=== PATIENT | male | born 1960 | race Caucasian/White ===

== ENCOUNTER 2017-03-01 09:53 | Emergency (ER) | payer MEDICARE, OTHER ==
[2017-03-01] MEDS ORDERED: HUMALOG100 UNIT/2 (10:03)
[2017-03-01] MEDS ORDERED: LANTUS100 U/ML SUBQ (10:04)
[2017-03-01] MEDS ORDERED: ZESTRIL5 MG PO (10:07)
[2017-03-01] MEDS ORDERED: LYRICA (10:07)
[2017-03-01] MEDS ORDERED: KLOR-CON PO (10:07)
[2017-03-01] MEDS ORDERED: FUROSEMIDE40 MG PO (10:07)
[2017-03-01] MEDS ORDERED: AMARYL (10:08)
[2017-03-01] MEDS ORDERED: LIPITOR20 MG PO (10:08)
[2017-03-01] MEDS ORDERED: RANEXA500 MG PO (10:08)
[2017-03-01] MEDS ORDERED: CARVEDILOL6.25 MG PO (10:08)
[2017-03-01] MEDS ORDERED: COUMADIN10 MG (10:09)
[2017-03-01] MEDS ORDERED: IMDUR-ER60 M2 PO (10:09)
[2017-03-01] MEDS ORDERED: PHENERGAN25 M1 (10:09)
[2017-03-01] MEDS ORDERED: AMIODARONE HCL200 MG PO (10:10)
[2017-03-30] MEDS ORDERED: RANEXA500 MG PO (14:27)
[2017-03-30] MEDS ORDERED: CRESTOR40 MG PO (14:27)
[2017-03-30] MEDS ORDERED: KLONOPIN1 MG PO (14:27)
[2017-03-30] MEDS ORDERED: COREG6.25 M1 PO (14:28)
[2017-03-30] MEDS ORDERED: NEURONTIN800 MG PO (14:29)
[2017-03-30] MEDS ORDERED: SARAFEM20 MG PO (14:30)
[2017-03-30] MEDS ORDERED: ZESTRIL5 MG PO (14:30)
[2017-03-30] MEDS ORDERED: OXYCODONE-APAP1 EAC5 PO (14:36)
== END 2017-03-01 10:54 | disposition home or self-care (01) ==
LOC: SED 09:53
DX: M54.32 Sciatica, left side (principal); I10 Essential (primary) hypertension; E11.9 Type 2 diabetes mellitus without complications; I25.2 Old myocardial infarction; Z79.4 Long term (current) use of insulin; Z79.899 Other long term (current) drug therapy
CPT/HCPCS: 96372; 99283; J1885; J2360

== ENCOUNTER → 2017-03-30 | Day surgery (SDC) | payer MEDICARE, OTHER ==
[~2017-03-30] MED LIST: AMARYL; AMIODARONE HCL200 MG PO; CARVEDILOL6.25 MG PO; COREG6.25 M1 PO; COUMADIN10 MG; CRESTOR40 MG PO; FUROSEMIDE40 MG PO; HUMALOG100 UNIT/2; IMDUR-ER60 M2 PO; KLONOPIN1 MG PO; KLOR-CON PO; LANTUS100 U/ML SUBQ; LIPITOR20 MG PO; LYRICA; NEURONTIN800 MG PO; OXYCODONE-APAP1 EAC5 PO; PHENERGAN25 M1; RANEXA500 MG PO; SARAFEM20 MG PO; ZESTRIL5 MG PO
--- NOTE | ~2017-03-30 | OR ---
Unit #: [id number] #: [id number] Patient: ARPIT LAWSON [id number] [address] [id number] O MR#: [id number] NAME: ARPIT LAWSON ROOM: Date of Procedure: 03/30/2017 Admission Date: 03/30/2017 Surgeon: Mirza Albarran M.D. : 1960 Attending Physician: Rigo Albarran Referring Physician: Rigo Albarran Primary Care Physician: Joey Turk, [facility] OPERATIVE NOTE PROCEDURE PERFORMED Lumbar epidural steroid injection under x-ray guided needle placement. PREOPERATIVE DIAGNOSES 1. Acute lumbar radiculitis. 2. Spinal stenosis, lumbosacral spine. 3. Degenerative joint disease, lumbosacral spine. 4. Degenerative disk disease, lumbosacral spine. INDICATIONS FOR PROCEDURE The patient presents today with a month's long history of crescendo pattern lumbar radicular pain left greater than right, which has failed to respond to conservative management. He is on chronic Coumadin therapy for a mechanical aortic valve and states that he has never been able to come off anticoagulation for surgical procedures. After discussing risks and benefits of proceeding today with a lumbar approach epidural steroid injection with particular emphasis on the greater risk of bleeding associated with this procedure and potentially catastrophic event that could occur should he bleed. Despite this conversation, the patient requested that we proceed with the procedure. Following this discussion of other risks and benefits, the patient agreed proceeding would be the appropriate course of action. DESCRIPTION OF PROCEDURE He was then taken to the operating room, where he was prepped and draped in a sterile manner. Standard monitors were applied. No sedation was given if we wanted this patient fully aware of his surroundings and events throughout the evening and the lumbar epidural space was accessed at the L5-S1 level using loss of resistance technique and x-ray guidance. Needle placement was confirmed with injection of 2 mL of Omnipaque with approximately 75% dye being in the inferior direction. Following successful needle placement confirmation at the L5-S1 level, the patient received an injectate containing 4 mL normal saline and 80 mg of methylprednisolone. He tolerated this procedure well. He was discharged home with followup instructions with particular emphasis on the warning signs of epidural hematoma. Total x-ray time for today's procedure was 6 seconds. Dictated by... Amara Shabazz/mauricio Unit #: [id number] #: [id number] Patient: ARPIT LAWSON TD: 03/30/2017 16:25 JOB #: [id number] SURGERY CENTER OPERATIVE NOTE Page 1 of 1 X Rigo Albarran MD X PROCEDURE OPERATIVE NOTE
== END | disposition home or self-care (01) ==
LOC: CCSC 13:39
DX: M51.17 Intervertebral disc disorders with radiculopathy, lumbosacral region (principal); M47.27 Other spondylosis with radiculopathy, lumbosacral region; M48.07 Spinal stenosis, lumbosacral region; I25.10 Atherosclerotic heart disease of native coronary artery without angina pectoris; F17.210 Nicotine dependence, cigarettes, uncomplicated; Z86.73 Personal history of transient ischemic attack (TIA), and cerebral infarction without residual deficits; Z79.4 Long term (current) use of insulin; Z79.899 Other long term (current) drug therapy; Z79.01 Long term (current) use of anticoagulants; Z79.891 Long term (current) use of opiate analgesic; Z95.1 Presence of aortocoronary bypass graft; Z95.2 Presence of prosthetic heart valve; Z96.653 Presence of artificial knee joint, bilateral; Z98.890 Other specified postprocedural states
CPT/HCPCS: 82947; J1040; J2250

== ENCOUNTER → 2017-04-06 | Day surgery (SDC) | payer MEDICARE, OTHER ==
--- NOTE | ~2017-04-06 | OR ---
Unit #: [id number] #: [id number] Patient: ARPIT LAWSON [id number] [address] [address] [id number] O MR#: [id number] NAME: ARPIT LAWSON ROOM: Date of Procedure: 04/06/2017 Admission Date: 04/06/2017 Surgeon: Mirza Albarran M.D. : 1960 Attending Physician: Rigo Albarran Primary Care Physician: Joey Turk, [facility] CENTER OPERATIVE NOTE PROCEDURE PERFORMED Lumbar epidural steroid injection under x-ray guided needle placement. PREOPERATIVE DIAGNOSES 1. Acute lumbar radiculitis. 2. Spinal stenosis, lumbosacral spine. 3. Degenerative joint disease, lumbosacral spine. 4. Degenerative disk disease, lumbosacral spine. INDICATIONS FOR PROCEDURE The patient presents today status post one previous L5-S1 injection for an acute radiculitis, which had failed to respond to conservative measures. The patient states he got very little relief and what relief he did get was not sufficient to make him comfortable. After discussing risks and benefits of proceeding today with an L4-L5 epidural steroid injection and again discussing the possibility of bleeding and our concerns given that he is on anticoagulation and unable to come off it, the patient still desired to proceed with an L4-L5 epidural steroid injection today. We also discussed referral to [facility] for potential radiofrequency ablation of his multiple level facet arthrosis. DESCRIPTION OF PROCEDURE Following these discussions, the patient was taken to the operating room, where he was prepped and draped in a sterile manner. Standard monitors were applied. He refused all forms of sedation and the lumbar epidural space accessed at the L4-L5 level using loss of resistance technique and x-ray guidance. Needle placement was confirmed with injection of 2 mL of Omnipaque. There was approximately 60% dye flow inferiorly and 40% superiorly to L4-L5 level placement. Total x-ray time for this needle placement was 10 seconds. Following successful needle placement confirmation, the patient received 4 mL of normal saline and 80 mg of methylprednisolone. He tolerated this procedure well. He was discharged home with followup instructions which include an offer to return to this clinic as early as 07/13/2017 and also for the potential for [facility] referral. Dictated by... Amara Shabazz/mauricio TD: 04/06/2017 14:46 JOB #: [id number] Unit #: [id number] #: [id number] Patient: ARPIT LAWSON [facility] OPERATIVE NOTE Page 1 of 1 X Rigo Albarran MD PROCEDURE OPERATIVE NOTE
== END | disposition home or self-care (01) ==
LOC: CCSC 12:19
DX: M51.17 Intervertebral disc disorders with radiculopathy, lumbosacral region (principal); M47.27 Other spondylosis with radiculopathy, lumbosacral region; M48.07 Spinal stenosis, lumbosacral region; I25.10 Atherosclerotic heart disease of native coronary artery without angina pectoris; F17.210 Nicotine dependence, cigarettes, uncomplicated; Z79.4 Long term (current) use of insulin; Z79.01 Long term (current) use of anticoagulants; Z79.899 Other long term (current) drug therapy; Z86.73 Personal history of transient ischemic attack (TIA), and cerebral infarction without residual deficits; Z95.1 Presence of aortocoronary bypass graft; Z95.2 Presence of prosthetic heart valve; Z96.653 Presence of artificial knee joint, bilateral; Z98.890 Other specified postprocedural states
CPT/HCPCS: J1040; J2250